=== PATIENT | male | born 1980 | race Caucasian/White ===

== ENCOUNTER 2018-04-17 07:45 | Emergency (ER) | payer OTHER ==
[2018-04-17 08:02] VITALS: BP 134/83; PULSE 66; TEMP 97.8; BMI 26.6
[2018-04-17] MEDS ORDERED: IBUPROFEN 600 MG TABLET (FP) PO ONE ×2 (08:36→08:39)
--- NOTE | 2018-04-17 08:41 | PDOC ---
History of Present Illness - General Chief Complaint: Injury Stated Complaint: ELBOW INJURY Time Seen by Provider: 04/17/18 08:16 History Source: Patient Exam Limitations: No Limitations - History of Present Illness Initial Comments: 04/17/18 09:08 While working this morning, was holding heavy metal gate when the wind blew the other gate forward knocking him in the lower posterior humeral area. Patient has complaints of pain at left elbow and lower aspect of upper arm. Denies numbness or tingling to hands or fingers, no other injury. Occurred: reports: just prior to arrival, this morning Severity: reports: moderate Pain Location: reports: upper extremity (left arm) Method of Injury: Yes: direct blow Modifying Factors: improves with: None Loss of Consciousness: no loss of consciousness Associated Symptoms (Fall): denies symptoms Past History - Travel Traveled outside of the country in the last 30 days: No Close contact w/someone who was outside of country & ill: No - Past Medical History Allergies/Adverse Reactions: Allergies Allergy/AdvReac Type Severity Reaction Status Date / Time No Known Allergies Allergy Verified 04/17/18 08:01 Home Medications: Ambulatory Orders Ibuprofen 400 mg PO Q6H PRN #30 tablet 04/17/18 COPD: No DVT: No GI Disorders: No - Surgical History Appendectomy: No - Immunization History Immunization Up to Date: No - Suicide/Smoking/Psychosocial Hx Smoking History: Never smoked Have you smoked in the past 12 months: No Information on smoking cessation initiated: No Hx Alcohol Use: No Drug/Substance Use Hx: No Review of Systems - Review of Systems Able to Perform ROS?: Yes Is the patient limited [place] proficient: Yes Constitutional: Yes: See HPI. No: Symptoms Reported HEENTM: No: Symptoms Reported Respiratory: No: Symptoms reported Musculoskeletal: Yes: Symptoms Reported, See HPI, Joint Pain, Joint Swelling, Muscle Pain Integumentary: No: Symptoms Reported All Other Systems: Reviewed and Negative *Physical Exam - Vital Signs Last Vital Signs Temp Pulse Resp BP Pulse Ox 97.8 F 66 16 134/83 97 04/17/18 07:59 04/17/18 07:59 04/17/18 07:59 04/17/18 07:59 04/17/18 07:59 - Physical Exam General Appearance: Yes: Nourished, Appropriately Dressed, Apparent Distress, Moderate Distress HEENT: positive: MIL, Normal ENT Inspection, TMs Normal, Pharynx Normal Neck: positive: Supple. negative: Tender Musculoskeletal: positive: Normal Inspection Extremity: positive: Normal Range of Motion (but painful to extend and flex at elbow. No crepitus or step-offs, has tenderness above elbow joint to distal aspect of left posterior upper arm. Able to legs and extend against resistance which reproduces pain to distal humeral area. 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 We'll treat for elbow sprain, sling applied and treated with NSAIDs. Encouraged patient to continue elevation and ice to avoid any worsen swelling and potential compartment issues. *DC/Admit/Observation/Transfer Diagnosis at time of Disposition: Contusion Qualifiers: Encounter type: initial encounter Contusion area: elbow Laterality: left Qualified Code(s): S50.02XA - Contusion of left elbow, initial encounter - Discharge Dispostion Disposition: HOME Condition at time of disposition: Stable Decision to Admit order: No - Prescriptions Prescriptions: Ibuprofen 400 mg PO Q6H PRN #30 tablet PRN Reason: Pain - Referrals - Patient Instructions Printed Discharge Instructions: DI for Contusion Additional Instructions: Rest, ice to area on and off for 15 minutes 4-6 times a day Avoid heavy lifting or exercise until pain and swelling is resolved or until further directed Keep area highly elevated to reduce swelling Use splints/Yonatan wrap as directed Followup with orthopedist in one to 2 days if not improving, if significantly improved may wait one week for followup with orthopedist May use ibuprofen every 6 hours as needed for pain - Post Discharge Activity Forms/Work/School Notes: Back to Work
== END 2018-04-17 09:00 | disposition home or self-care (01) ==
LOC: JERFT 07:45
DX: S50.02XA Contusion of left elbow, initial encounter (principal); W20.8XXA Other cause of strike by thrown, projected or falling object, initial encounter; Y93.89 Activity, other specified; Y92.69 Other specified industrial and construction area as the place of occurrence of the external cause; Y99.0 Civilian activity done for income or pay
CPT/HCPCS: 73070-TC-LT-FY; 99281-25